=== PATIENT | male | born 1950 | race Caucasian/White ===

== ENCOUNTER 2017-01-01 09:13 | Inpatient (IN) | payer OTHER ==
--- NOTE | 2016-11-17 14:03 | PAT Medication Instructions ---
Service Date Nov 17, 2016. Current Home Medication List Aspirin (Aspirin Ec), 81 MG PO QAM Atorvastatin (Lipitor), 10 MG PO HS Cetirizine (Zyrtec), 10 MG PO QAM Cholecalciferol (Vitamin D3), 1 TAB PO QAM Flecainide (Tambocor), 100 MG PO BID Lisinopril (Zestril), 5 MG PO QAM Methotrexate (Methotrexate), 15 MG PO SUNDAY Multiple Vitamins W/ Minerals (Centrum Adults), 1 TAB PO QAM Medication Instructions For Your Scheduled Surgery - Check with surgeon/prescribing for instructions: Methotrexate (Methotrexate), 15 MG PO SUNDAY - Hold the following medications the morning of surgery: Multiple Vitamins W/ Minerals (Centrum Adults), 1 TAB PO QAM Lisinopril (Zestril), 5 MG PO QAM Cetirizine (Zyrtec), 10 MG PO QAM Cholecalciferol (Vitamin D3), 1 TAB PO QAM - Take the following medications the morning of surgery with a sip of water: Flecainide (Tambocor), 100 MG PO BID Aspirin (Aspirin Ec), 81 MG PO QAM (okay to take per surgeon instructions) - Take the following medications as scheduled the night before surgery: Flecainide (Tambocor), 100 MG PO BID Atorvastatin (Lipitor), 10 MG PO HS If you have any questions please call us at [phone] (Robyn Haji PA-C) or [phone] or [phone]
[2016-11-17 14:43] LABS: BASO % 0.3 %; BASO ABS # 0.03 K/uL (0-0.2); COMPLETE YES; EOS % 2.9 %; HEMATOCRIT 42.7 % (42-52); IG% 0.1 %; LYMPH % 17.6 %; LYMPH ABS # 1.56 K/uL (1.2-3.4); MEAN CELL VOLUME 96.8 fL (80-100); MEAN CORPUSCULAR HEMOGLOBIN 32.7 pg (25-34); MEAN CORPUSCULAR HGB CONC 33.7 g/dl (32-36); MEAN PLATELET VOLUME 10.4 fL (7.4-10.4); MONO % 10.8 %; NEUT % 68.3 %; PLATELET COUNT 323 K/uL (130-400); RED BLOOD COUNT 4.41 M/uL (4.7-6.1); WHITE BLOOD COUNT 8.88 K/uL (4.8-10.8)
--- NOTE | 2016-11-17 14:44 | DIAGNOSTIC IMAGING REPORT ---
TWO VIEW CHEST CLINICAL HISTORY: Preoperative examination. FINDINGS: PA and lateral chest radiographs are obtained. No prior studies are available for comparison at the time of dictation. The cardiomediastinal silhouette is unremarkable. A small calcified granuloma is incidentally noted in the right lower lobe. The lungs and pleural spaces are otherwise clear. There is no pneumothorax. The bony thorax appears intact. IMPRESSION: No active disease in the chest. Electronically signed by: Johnny Myers M.D. 11/17/2016 2:42 PM Dictated Date/Time: 11/17/2016 2:41 PM
[2016-11-17 14:51] LABS: URINE APPEARANCE CLEAR (CLEAR); URINE BILIRUBIN NEG (NEG); URINE COLOR YELLOW; URINE NITRITE NEG (NEG); URINE SPECIFIC GRAVITY 1.026 (1.000-1.030); UROBILINOGEN NEG (NEG); ZZUR CULT IF INDIC CLEAN CATCH NO
[2016-11-17 15:03] LABS: PROTHROMBIN TIME (PATIENT) 10.6 SECONDS (9.0-12.0)
[2016-11-17 15:05] LABS: CALCIUM 8.6 mg/dl (8.5-10.1); POTASSIUM 4.3 mmol/L (3.5-5.1)
[2016-11-17 15:13] LABS: MANUAL MICROSCOPIC REQUIRED? NO; REVIEW REQ? NO
--- NOTE | 2016-12-29 11:35 | HISTORY & PHYSICAL EXAMINATION ---
DATE OF ADMISSION: 01/01/2017 CHIEF COMPLAINT: Bilateral knee pain. HISTORY OF PRESENT ILLNESS: The patient has had pain in both of his knees for several years. He rates his pain an 8/10. He has pain with his daily activities. He has limited standing and walking tolerance. Pain is worse with weightbearing. The patient has had injections and ibuprofen without relief. He has failed conservative treatment and is scheduled for staged total knee replacements. 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 He denies heart disease or diabetes. PAST SURGICAL HISTORY: Tonsillectomy, appendectomy, bilateral knee arthroscopy. SOCIAL HISTORY: The patient drinks 2-3 drinks per week. He denies tobacco use. He lives in a [address] home. He is and retired. FAMILY HISTORY: The patient is adopted. MEDICATIONS: Lisinopril 5 mg daily, atorvastatin 10 mg daily, flecainide 100 mg b.i.d., methotrexate 15 mg weekly, aspirin 81 mg daily, vitamin D 2000 mg daily, Centrum Silver 1 daily, Zyrtec 10 mg daily. ALLERGIES: None. REVIEW OF SYSTEMS: See HPI. Ten other systems reviewed, all negative. PHYSICAL EXAMINATION: VITAL SIGNS: Height 6 foot 0 inches, weight 223 pounds. BMI is 30. GENERAL: This is a well-developed, well-nourished male who is alert and oriented x3. Mood and affect are appropriate. HEENT: Normocephalic, atraumatic. Mucous membranes are moist and intact. NECK: Supple without lymphadenopathy. HEART: Regular rate and rhythm without murmurs, rubs or gallops. LUNGS: Clear to auscultation without wheezes or rhonchi. ABDOMEN: Soft and nontender. Bowel sounds are equal and active. EXTREMITIES: No ecchymosis, redness or warmth. He has neutral alignment bilaterally. Range of motion is from 0-120 degrees with +1 laxity. He is neurovascularly intact with +5/5 strength. X-RAY EXAMINATION: AP and lateral views show joint space narrowing and osteophyte formation. IMPRESSION: Degenerative joint disease, left knee. PLAN: The patient will be admitted for a left total knee arthroplasty. His coag workup is negative. His art objects supervisor is recommending Xarelto 10 mg for 2 weeks. He is doing outpatient physical therapy.
[~2017-01-01] VITALS: Ht 182.9 cm; Wt 97.3 kg
[2017-01-01] VITALS (7 sets, daily range): BP systolic 104–146; BP diastolic 62–96; PULSE 61–69; TEMP 36.4–36.9; O2SAT 97–100; Ht 182.9 cm; Wt 97.3 kg
[~2017-01-01 09:13] MED LIST: ACETAMINOPHEN 500 MG TAB PO SCH; ASPI81TA28 PO; ATOR10TA88 PO; BUPIVACAINE 0.5 % 5 MG/1 ML PF 10ML VIAL ONE; BUPIVACAINE/EPINEPHRINE 0.25% 1:200,000 30 ML VIAL ONE; CEFAZOLIN 2000 MG/60 ML D5W 60 ML IV SCH; CETI10TA84 PO; CHOL1000 PO; CeleBREX 200 MG CAP PO SCH; DEXAMETHASONE 4 MG TAB PO SCH; FAMOTIDINE 20 MG TAB PO SCH; FLEC100T21 PO; GABAPENTIN 300 MG CAP PO SCH; LACTATED RINGER'S 1000ML 1,000 ML IV SCH; LACTATED RINGER'S 1000ML 500 ML IV ONE; LISI-729 PO; METOCLOPRAMIDE HCL 10 MG TAB PO SCH; MTH25 PO; MULT-610 PO; OXYCODONE HCL 10 MG TABCR (OXYCONTIN) PO SCH; POLYMYXIN B SULFATE 100,000 UNITS in NSS 100ML IR SCH; ROPIVACAINE 5MG/ML 30 ML 150 MG, BUPIVACAINE/EPINEPHR 0.5% MPF 30 ML, KETOROLAC TROMETH... INFIL SCH; VANCOMYCIN INJ 400 MG in NSS 100ML IR SCH
[2017-01-01] MEDS ORDERED: TRAMADOL HCL 50 MG TAB ONE (09:54)
[2017-01-01] MEDS ORDERED: EpHEDrine SULFATE INJ 50 MG/ML AMP IV PRN (10:45)
[2017-01-01] MEDS ORDERED: NALOXONE HCL 0.4 MG/1 ML VIAL/CARP IV PRN (10:45)
[2017-01-01] MEDS ORDERED: FLUMAZENIL 0.1 MG/1 ML 10 ML VIAL IV PRN (10:45)
[2017-01-01] MEDS ORDERED: LABETALOL HCL IV 5 MG/ML 20ML IV PRN (10:45)
[2017-01-01] MEDS ORDERED: MEPERIDINE HCL 25 MG/ML CARP IV PRN (10:45)
[2017-01-01] MEDS ORDERED: HYDROmorphone INJ 2 MG/ML SYR/VIAL IV PRN (10:45)
[2017-01-01] MEDS ORDERED: ONDANSETRON INJ 2 MG/ML 2 ML VIAL IV PRN ×2 (10:45→13:15)
[2017-01-01] MEDS ORDERED: FENTANYL CITRATE INJ 50 MCG/1 ML 2 ML VIAL IV PRN (10:45)
[2017-01-01] MEDS ORDERED: PHENYLEPHRINE 100MCG/ML 5ML SYR IV PRN (10:45)
[2017-01-01] MEDS ORDERED: ATROPINE SULFATE 0.1 MG/ML 5ML SYR IV PRN (10:45)
--- NOTE | 2017-01-01 11:01 | History & Physical Bridge Note ---
H&P Re-Evaluation Bridge Note: I have examined the patient, reviewed the History & Physical and in the interval since the performance of the History & Physical I have noted the following changes of clinical significance: No changes noted
[2017-01-01] MEDS ORDERED: ORTHO JOINT ANESTHETIC ONE (11:25)
[2017-01-01] MEDS ORDERED: BUPIVACAINE/EPINEPHRINE 0.25% 1:200,000 30 ML VIAL ONE (11:25)
[2017-01-01] MEDS ORDERED: BACITRACIN 50000 UNIT VIAL ONE (11:25)
[2017-01-01] MEDS ORDERED: POVIDONE-IODINE OP SOLN 30 ML BTL ONE (11:25)
[2017-01-01] MEDS ORDERED: PROPOFOL IV EMULSION 10 MG/ML 20 ML VIAL IV ONE (11:28)
[2017-01-01] MEDS ORDERED: MIDAZOLAM HCL 1 MG/ML 2ML VIAL ONE (11:28)
[2017-01-01] MEDS ORDERED: LIDOCAINE HCL 2% 2 ML VIAL (20MG/ML) ONE (11:28)
[2017-01-01] MEDS ORDERED: PHENYLEPHRINE 100MCG/ML 5ML SYR ONE (12:56)
--- NOTE | 2017-01-01 13:10 | [facility] Post Operative Brief Note ---
Immediate Operative Summary Operative Date Jan 01, 2017. Pre-Operative Diagnosis Left knee degenerative joint disease Post-Operative Diagnosis Left knee degenerative joint disease Procedure(s) Performed Left total knee arthroplasty Surgeon Dr. Karthik Hahn Plumbing Warehouse Helper Surgeon(s) Jessika Everett PA-C Estimated Blood Loss 100ML Findings DJD Specimens A. Left knee bone and tissue Complication(s) None Disposition Recovery Room / PACU
[2017-01-01] MEDS ORDERED: SOD PHOSPHATE/SOD BIPHOSPHATE ENEMA 132 ML BTL PR PRN (13:15)
[2017-01-01] MEDS ORDERED: DiphenhydrAMINE HCL 50 MG/ML VIAL IV PRN (13:15)
[2017-01-01] MEDS ORDERED: MAGNESIUM HYDROXIDE SUSP 30 ML UDC PO PRN (13:15)
[2017-01-01] MEDS ORDERED: ALUMINUM/MAGNESIUM/SIMETH (MAALOX MAX) 30 ML UDC PO PRN (13:15)
[2017-01-01] MEDS ORDERED: BISACODYL 10 MG SUPP PR PRN (13:15)
[2017-01-01] MEDS ORDERED: METOCLOPRAMIDE HCL INJ 5 MG/ML 2 ML VIAL IV PRN (13:15)
[2017-01-01] MEDS ORDERED: ZOLPIDEM TARTRATE 5 MG TAB PO PRN (13:15)
[2017-01-01] MEDS ORDERED: KETOROLAC TROMETHAMINE 30 MG/ML VIAL IV. PRN (13:15)
[2017-01-01] MEDS ORDERED: MoRPHine SULFATE 2 MG/ML CARP IV PRN (13:15)
[2017-01-01] MEDS ORDERED: TRAMADOL HCL 50 MG TAB PO PRN (13:15)
--- NOTE | 2017-01-01 14:13 | DIAGNOSTIC IMAGING REPORT ---
LEFT KNEE 2 VIEWS CLINICAL HISTORY: Postop examination COMPARISON: None. DISCUSSION: There are postsurgical changes of a total left knee arthroplasty and patellar resurfacing. The femoral and tibial components appear well seated. Overlying surgical drains are evident. Air within soft tissues is consistent with history of recent surgery. IMPRESSION: Postsurgical changes of a total left knee arthroplasty. Electronically signed by: Mahad Escobedo M.D. 01/01/2017 2:11 PM Dictated Date/Time: 01/01/2017 2:10 PM
--- NOTE | 2017-01-01 14:33 | Anesthesiology Progress Note ---
Anesthesia Post Op Note Date & Time Jan 01, 2017 at 14:33 Vital Signs Pain Intensity: 0 Vital Signs Past 12 Hours Date Time Temp Pulse Resp B/P Pulse Ox O2 Delivery O2 Flow Rate FiO2 01/01/17 14:20 69 18 116/64 98 Nasal Cannula 2 01/01/17 14:10 65 15 108/62 98 Nasal Cannula 2 01/01/17 14:00 66 18 111/65 98 Nasal Cannula 2 01/01/17 13:50 66 17 108/63 100 Mask 10 01/01/17 13:42 36.1 70 16 103/63 100 Mask 10 01/01/17 09:39 36.4 69 16 146/96 Room Air Notes Mental Status: alert / awake / arousable, participated in evaluation Pt Amnestic to Procedure: Yes Nausea / Vomiting: adequately controlled Pain: adequately controlled Airway Patency, RR, SpO2: stable & adequate BP & HR: stable & adequate Hydration State: stable & adequate Neuraxial Anesthesia: was administered, sensory block is resolving Anesthetic Complications: no major complications apparent
[2017-01-01] MEDS: D5W AND 1/2NSS + 20MEQ KCL 1,000 ML IV SCH (16:19)
[2017-01-01] MEDS: TRANEXAMIC ACID INJ 1,000 MG in SODIUM CHLORIDE 0.9% 100ML 100 ML IV SCH ×2 (16:34→22:09)
--- NOTE | 2017-01-01 17:28 | OPERATIVE REPORT ---
DATE OF OPERATION: 01/01/2017 PREOPERATIVE DIAGNOSIS: Degenerative arthritis, left knee. POSTOPERATIVE DIAGNOSIS: Same. PROCEDURE: Left total knee with patient matched implant. SURGEON: Dr. Hahn. ROCKET ENGINE COMPONENT MECHANIC: RONI Atkins. ANESTHESIA: Spinal. BLOOD LOSS: 100 mL. REPLACEMENT FLUIDS: 1700 mL crystalloid. DRAINS: Hemovac x2. CULTURES: None. COMPLICATIONS: None. COMPONENTS USED: Davila \T\ Nephew Journey Knee System: Femur size 8, tibia size 7 x 9, patella size 38. NOTE: RONI Atkins was present and assisted throughout due to the complicated nature of this case. She helped with preparation and set up. She first assisted throughout and personally closed the capsule, subcutaneous and skin layers and applied the postoperative dressing. DESCRIPTION OF PROCEDURE: Following satisfactory spinal, a tourniquet was placed but not inflated. The left lower extremity was prepared with ChloraPrep and draped sterilely. Following a surgical time-out, a midline incision was made with a trivector approach. The knee showed grade 4 changes throughout. The cruciate ligaments were excised. The patient matched femoral block was applied. Femoral distal rotation and resection were set and completed. The 4-in-1 block was used to finish preparation of the femur. The patient matched tibial block was applied. Tibial resection was completed. The patella was freehand cut. Soft tissue balancing was completed and a trial reduction showed good tensioning stability on the collateral ligaments, stable range of motion, and the patella tracked well. The trial components were removed. The capsule was prepared with the orthopedic cocktail and after irrigation the components were cemented with Simplex G cement. When the cement had hardened, Betadine soak was performed for 5 minutes and then irrigated. The Betadine was removed. The arthrotomy was closed with a running suture of 0 V-Loc, the subcutaneous tissues with 2-0 Vicryl and the skin with a running subcuticular stitch of 3-0 V-Loc. Dermabond and a dry dressing were applied. The patient was returned to his bed in stable condition. I attest to the content of the Intraoperative Record and any orders documented therein. Any exceptio ns are noted below.
[2017-01-01] MEDS: CEFAZOLIN IV 2,000 MG in DEXTROSE 5% 50ML 50 ML IV SCH (17:51)
[2017-01-01] MEDS: FLECAINIDE ACETATE 100 MG TAB PO SCH (20:34)
[2017-01-01] MEDS: SENNA 8.6 MG TAB PO SCH (20:34)
[2017-01-01] MEDS: ATORVASTATIN 10 MG TAB PO SCH (20:34)
[2017-01-01] MEDS: OXYCODONE HCL 10 MG TABCR (OXYCONTIN) PO SCH (20:35)
[2017-01-01] MEDS: CeleBREX 200 MG CAP PO SCH (20:35)
[2017-01-01] MEDS: ACETAMINOPHEN 500 MG TAB PO SCH (22:08)
[2017-01-02] VITALS: BP 110/58; PULSE 59; TEMP 36.8; O2SAT 97
[2017-01-02] MEDS: OXYCODONE HCL IR 5 MG TAB (IMMEDIATE RELEASE) PO PRN ×4 (00:03→18:24)
[2017-01-02] MEDS: CEFAZOLIN IV 2,000 MG in DEXTROSE 5% 50ML 50 ML IV SCH (01:45)
[2017-01-02] MEDS: D5W AND 1/2NSS + 20MEQ KCL 1,000 ML IV SCH ×2 (01:45→12:00)
[2017-01-02 03:55] VITALS: BP 107/67; PULSE 57; TEMP 36.6; O2SAT 99
[2017-01-02] MEDS: ACETAMINOPHEN 500 MG TAB PO SCH ×3 (05:52→21:33)
[2017-01-02 06:52] LABS: HEMATOCRIT 36.6 % (42-52); MEAN CELL VOLUME 92.7 fL (80-100); MEAN CORPUSCULAR HEMOGLOBIN 31.9 pg (25-34); MEAN CORPUSCULAR HGB CONC 34.4 g/dl (32-36); MEAN PLATELET VOLUME 10.6 fL (7.4-10.4); PLATELET COUNT 270 K/uL (130-400); RED BLOOD COUNT 3.95 M/uL (4.7-6.1); WHITE BLOOD COUNT 18.65 K/uL (4.8-10.8)
[2017-01-02 07:21] LABS: BUN/CREATININE RATIO 21.8 (10-20); CALCIUM 8.4 mg/dl (8.5-10.1); CREATININE 0.93 mg/dl (0.60-1.40); POTASSIUM 4.1 mmol/L (3.5-5.1)
[2017-01-02 08:04] VITALS: BP 161/70; PULSE 62; TEMP 36.5; O2SAT 98
--- NOTE | 2017-01-02 08:06 | Orthopedic Progress Note ---
Orthopedic Progress Note Date of Service Jan 02, 2017. Subjective Post OP Day: 1 Reports: feeling well, Denies: SOB, calf pain, chest pain, light headedness, nausea / vomiting Objective calves soft nontender, N/V intact, dressing C/D/I, A&O x3, toes mobile, hemovac drainage (775/225cc per shift) Date Time Temp Pulse Resp B/P Pulse Ox O2 Delivery O2 Flow Rate FiO2 01/02/17 08:04 36.5 62 18 161/70 98 Room Air 01/02/17 03:55 36.6 57 16 107/67 99 CPAP 01/02/17 00:00 36.8 59 16 110/58 97 Room Air 01/01/17 23:40 Room Air 01/01/17 20:39 68 16 106/66 99 Nasal Cannula 2.0 01/01/17 18:15 36.5 66 18 116/75 97 Nasal Cannula 2.0 01/01/17 17:19 36.9 61 18 109/64 98 Nasal Cannula 2.0 01/01/17 16:13 36.8 65 16 115/64 98 Nasal Cannula 2.0 01/01/17 15:48 63 16 104/63 100 Nasal Cannula 2.0 01/01/17 15:15 99 Nasal Cannula 2.0 01/01/17 15:15 36.9 67 16 115/62 99 Nasal Cannula 2.0 01/01/17 15:15 99 Nasal Cannula 2.0 01/01/17 15:00 68 15 99/61 98 Nasal Cannula 2 01/01/17 14:45 73 18 102/57 98 Nasal Cannula 2 01/01/17 14:30 36.8 67 12 108/57 99 Nasal Cannula 2 01/01/17 14:20 69 18 116/64 98 Nasal Cannula 2 01/01/17 14:10 65 15 108/62 98 Nasal Cannula 2 01/01/17 14:00 66 18 111/65 98 Nasal Cannula 2 01/01/17 13:50 66 17 108/63 100 Mask 10 01/01/17 13:42 36.1 70 16 103/63 100 Mask 10 01/01/17 09:39 36.4 69 16 146/96 Room Air Laboratory Results 24 Hours: Test 01/02/17 06:28 Hematocrit 36.6 % Hemoglobin 12.6 g/dL Assessment & Plan Assessment: POD#1 sp tKA Inhouse Planning Pain Management: Celebrex, Oxycontin, PO Tylenol, Oxy IR DVT Prophylaxis: TEDs, SCDs, Xarelto Discharge Planning Discharge Planning: home with oppt ([place] [facility] SUNDAY)
--- NOTE | 2017-01-02 08:09 | Discharge Instructions ---
Discharge Instructions Admission Reason for Admission: Post Operative State Discharge Discharge Diagnosis / Problem: SP TOTAL KNEE ARTHROPLASTY Discharge Goals Goal(s): Decrease discomfort, Improve function, Increase independence Activity Recommendations Activity Limitations: per Instructions/Follow-up section . Instructions / Follow-Up Instructions / Follow-Up ACTIVITY RECOMMENDATIONS: SELF CARE INSTRUCTIONS AFTER TOTAL KNEE REPLACEMENT A. You may need to continue a physical therapy program after discharge from the hospital. There are several options available to you. Your doctor will assist you in selecting the best one for you. 1. An out-patient facility 2 to 3 times a week for therapy or home therapy. 2. Continue working on all exercises taught to you in the hospital. Your goals should be to increase bending of your knee to 90 degrees and beyond and to fully straighten your knee. B. You may progress at your own pace from walking with a walker or crutches to a cane; then to no assistive devices. C. Make walking a part of your daily routine. Be up as much as comfortable with rest periods throughout the day. Rest with leg elevation is very important. Use the ice wrap frequently for the first 3-4 weeks. D. There are no restrictions on activities. You may ride in a car, shop, participate in clinical account executive and all social activities. E. Wear the long elastic stockings (SEVERIANO hose) 20 hours a day for 2 weeks after surgery. They can be removed several times a day for laundering and for a bath. F. You may shower, no tub baths until cleared by your doctor. SPECIAL CARE INSTRUCTIONS: VERY IMPORTANT TO READ AND REVIEW A. There are a few signs you need to watch for after you are home. Call [facility] if you notice any of the followin. Increased severe knee pain. Some pain is expected especially when you exercise. 2. Increased swelling in your leg or knee; pain or swelling of the calf muscle in either lower leg. 3. Any fluid drainage from the incision. 4. Shortness of breath or chest pain. B. Please call [facility] at if you have any concerns or questions about your operation or recovery. The doctor or his nurse will return your call promptly. C. You must take antibiotics before dental work, bladder, bowel or other surgery. Your doctor will provide you with a permanent care to carry describing this precaution. IMPORTANT: * HIGH RISK PATIENTS MAY BE PRESCRIBED A STRONGER BLOOD THINNER. THIS WILL BE PROVIDED AT DISCHARGE. ---XARELTO X 14 DAYS * CALL IF INCREASED PAIN, REDNESS, DRAINAGE OR FEVER GREATER THAT 101. * WEAR SEVERIANO HOSE 20 HOURS PER DAY FOR 2 WEEKS. DERMABOND Prineo- This is a mesh tape dressing that is covered with glue. It should remain in place until the incision is properly healed, usually 10-14 days. This dressing is designed to naturally slough off. You may trim the excess mesh tape as it peels off. Incision may be briefly wet in a shower. Dry immediately by blotting with a clean, dry towel. Do not bath or swim until instructed by your doctor. Do not scratch, rub, or pick at the dressing. Do not apply any topical ointments or lotions until dressing is completely removed and/or instructed by your doctor. There may be a small piece of suture material at one end of your incision. Do not pull or trim this. If it is bothersome or catching on clothing, you may cover it with a band-aid. FOLLOW UP VISIT: If appointment is not already scheduled: Please call [facility] to make a follow-up appointment for 2 weeks after your surgery at . Current Hospital Diet Patient's current hospital diet: Regular Diet Discharge Diet Recommended Diet: Regular Diet Procedures Procedures Performed: Left total knee arthroplasty Pending Studies Studies pending at discharge: no Medical Emergencies . Who to Call and When: Medical Emergencies: If at any time you feel your situation is an emergency, please call 911 immediately. . Non-Emergent Contact Non-Emergency issues call your: Primary Care Provider . "Provider Documentation" section prepared by Jessika Everett. VTE Core Measure Inpt VTE Proph given/why not?: Other Anticoagulation, T.E.D. Stockings, SCD's [place] Drug Monitoring Program Search Results: no issues identified
--- NOTE | 2017-01-02 08:11 | Anesthesiology Progress Note ---
Anesthesia Post Op Note Date & Time Jan 02, 2017 at 08:11 Vital Signs Pain Intensity: 6.0 Vital Signs Past 12 Hours Date Time Temp Pulse Resp B/P Pulse Ox O2 Delivery O2 Flow Rate FiO2 01/02/17 08:04 36.5 62 18 161/70 98 Room Air 01/02/17 03:55 36.6 57 16 107/67 99 CPAP 01/02/17 00:00 36.8 59 16 110/58 97 Room Air 01/01/17 23:40 Room Air 01/01/17 20:39 68 16 106/66 99 Nasal Cannula 2.0 Notes Mental Status: alert / awake / arousable, participated in evaluation Pt Amnestic to Procedure: Yes Nausea / Vomiting: adequately controlled Pain: adequately controlled Airway Patency, RR, SpO2: stable & adequate BP & HR: stable & adequate Hydration State: stable & adequate Neuraxial Anesthesia: sensory block resolved Anesthetic Complications: no major complications apparent
[2017-01-02] MEDS: PANTOprazole SOD 40 MG TAB PO SCH (08:54)
[2017-01-02] MEDS: RIVAROXABAN 10 MG TAB PO SCH (08:54)
[2017-01-02] MEDS: CETIRIZINE HCL 10 MG TAB PO SCH (08:54)
[2017-01-02] MEDS: FLECAINIDE ACETATE 100 MG TAB PO SCH ×2 (08:54→20:43)
[2017-01-02] MEDS: LISINOPRIL 5 MG TAB PO SCH (08:55)
[2017-01-02] MEDS: MULTIVITAMIN TAB PO SCH (08:55)
[2017-01-02] MEDS: CeleBREX 200 MG CAP PO SCH ×2 (08:55→20:43)
[2017-01-02] MEDS: CHOLECALCIFEROL 1000 INTER.UNIT TAB PO SCH (08:55)
[2017-01-02] MEDS: OXYCODONE HCL 10 MG TABCR (OXYCONTIN) PO SCH ×2 (08:59→20:43)
[2017-01-02] MEDS ORDERED: RIVAROXABAN 20 MG TAB PO SCH (09:00)
[2017-01-02 11:24] VITALS: BP 118/69; PULSE 62; TEMP 36.9; O2SAT 98
[2017-01-02 15:50] VITALS: BP 109/74; PULSE 58; TEMP 36.6; O2SAT 99
[2017-01-02] MEDS: ATORVASTATIN 10 MG TAB PO SCH (20:43)
[2017-01-02] MEDS: SENNA 8.6 MG TAB PO SCH (20:44)
[2017-01-02 23:45] VITALS: BP 114/56; PULSE 67; TEMP 36.6; O2SAT 98
[2017-01-03] MEDS: ACETAMINOPHEN 500 MG TAB PO SCH (05:41)
[2017-01-03 06:40] VITALS: BP 121/74; PULSE 64; TEMP 36.7; O2SAT 98
[2017-01-03] MEDS: RIVAROXABAN 10 MG TAB PO SCH (07:27)
[2017-01-03] MEDS: CHOLECALCIFEROL 1000 INTER.UNIT TAB PO SCH (07:28)
[2017-01-03] MEDS: CETIRIZINE HCL 10 MG TAB PO SCH (07:28)
[2017-01-03] MEDS: PANTOprazole SOD 40 MG TAB PO SCH (07:28)
[2017-01-03] MEDS: MULTIVITAMIN TAB PO SCH (07:28)
[2017-01-03] MEDS: OXYCODONE HCL IR 5 MG TAB (IMMEDIATE RELEASE) PO PRN (07:29)
[2017-01-03] MEDS: LISINOPRIL 5 MG TAB PO SCH (07:29)
[2017-01-03] MEDS: CeleBREX 200 MG CAP PO SCH (07:30)
[2017-01-03] MEDS: OXYCODONE HCL 10 MG TABCR (OXYCONTIN) PO SCH (07:30)
[2017-01-03] MEDS: FLECAINIDE ACETATE 100 MG TAB PO SCH (07:30)
[2017-01-03] MEDS ORDERED: SNK PO (08:36)
[2017-01-03] MEDS ORDERED: ACET-1138 PO (08:36)
[2017-01-03] MEDS ORDERED: XRL10 PO (08:36)
[2017-01-03] MEDS ORDERED: ONDA8TAB6 PO (08:36)
[2017-01-03] MEDS ORDERED: RXC5 PO (08:36)
[2017-01-03] MEDS ORDERED: MORP-157 PO (08:36)
[2017-01-03] MEDS ORDERED: CLB200 PO (08:36)
[2017-01-03 08:38] VITALS: BP 110/66; PULSE 67; TEMP 36.6; O2SAT 99
[2017-01-03 08:45] VITALS: O2SAT 99
--- NOTE | 2017-01-03 08:59 | DISCHARGE SUMMARY ---
DISCHARGE DIAGNOSIS: Degenerative joint disease, left knee. SECONDARY DIAGNOSES: Hypertension, ischemic optic neuropathy and a history of jugular thrombosis. CONSULTS: None. COMPLICATIONS: None. PROCEDURE: The patient underwent a left total knee arthroplasty with Dr. Hahn on 01/01/2017. BRIEF HISTORY: Please see previously dictated history and physical. HOSPITAL SUMMARY: The patient was admitted on the above day for the above procedure. Procedure went without complication. Postop day #1, the patient was feeling well without complaints. He denied chest pain or shortness of breath. Vital signs were stable. He was afebrile. Dressing was clean, dry and intact. He was neurovascularly intact. Calves were soft and nontender. Hemoglobin was 12.6. The patient began physical therapy per protocol. Drainage was 775 and 225 per shift. Postop day #2, the patient continued to improve. He denied chest pain or shortness of breath. Vital signs were stable. He was afebrile. Dressing was clean, dry and intact. He was neurovascularly intact. Calves were soft and nontender. He continued to progress with therapy and was discharged home later that day in stable condition. For further review, please see the chart. Lab, x-ray data and discharge instructions as per chart.
--- NOTE | 2017-01-03 09:26 | Orthopedic Progress Note ---
Orthopedic Progress Note Date of Service Jan 03, 2017. Subjective Post OP Day: 2 Reports: feeling well, pain controlled w PO medications, Denies: SOB, chest pain , complaints Objective calves soft nontender, N/V intact, incision C/D/I, A&O x3, toes mobile Date Time Temp Pulse Resp B/P Pulse Ox O2 Delivery O2 Flow Rate FiO2 01/03/17 08:45 99 Room Air 01/03/17 08:38 36.6 67 18 110/66 99 Room Air 01/03/17 07:15 Room Air 01/03/17 06:40 36.7 64 16 121/74 98 CPAP 01/02/17 23:45 36.6 67 16 114/56 98 CPAP 01/02/17 19:20 Room Air CPAP 01/02/17 15:50 36.6 58 16 109/74 99 Room Air 01/02/17 11:24 36.9 62 20 118/69 98 Room Air Assessment & Plan Assessment: POD# 2 sp tKA hx hypeercoagulability Plan: HOME TODAY OPPT Inhouse Planning Pain Management: Celebrex, Oxycontin, PO Tylenol, Oxy IR DVT Prophylaxis: TEDs, SCDs, Xarelto Discharge Planning Discharge Planning: home with oppt ([place] [facility] SUNDAY) Pain Management: Celebrex, Oxycontin, PO Tylenol, Oxy IR DVT Prophylaxis: TEDs, Xarelto
[2017-01-03 12:22] VITALS: BP 110/66; PULSE 67; TEMP 36.6; O2SAT 99
== END 2017-01-03 13:35 | disposition home or self-care (01) | DRG 470 ==
LOC: ENRESERVTM → ENRESERVDT → C.ACU 09:13 → C.3E 11:00
PROVIDERS: ADMIT Orthopaedic Surgery; ATTEND Orthopaedic Surgery
PROC: 0SRD0J9 Replacement of Left Knee Joint with Synthetic Substitute, Cemented, Open Approach (ICD-10-PCS; principal; 2017-01-01 11:45)
DX: M17.12 Unilateral primary osteoarthritis, left knee (principal); H53.129 Transient visual loss, unspecified eye; E78.00 Pure hypercholesterolemia, unspecified; I10 Essential (primary) hypertension; G47.33 Obstructive sleep apnea (adult) (pediatric); M54.5 Low back pain; E66.9 Obesity, unspecified; I99.9 Unspecified disorder of circulatory system; D64.9 Anemia, unspecified; G25.0 Essential tremor; H47.011 Ischemic optic neuropathy, right eye; I49.3 Ventricular premature depolarization; D86.9 Sarcoidosis, unspecified; Z86.2 Personal history of diseases of the blood and blood-forming organs and certain disorders involving the immune mechanism; Z79.82 Long term (current) use of aspirin; Z68.30 Body mass index [BMI] 30.0-30.9, adult; Z79.899 Other long term (current) drug therapy; Z99.89 Dependence on other enabling machines and devices; Z86.718 Personal history of other venous thrombosis and embolism